=== PATIENT | male | born 1980 | race African-American/Black ===

== ENCOUNTER 2017-11-07 20:54 | Emergency (ER) | payer MEDICAID ==
[~2017-11-07 20:54] MED LIST: HYDR-3927 GT; LURA80TA PO; MIRT-91 PO
== END 2017-11-07 22:53 | disposition left against medical advice (07) ==
LOC: ER 22:35
DX: Z53.21 Procedure and treatment not carried out due to patient leaving prior to being seen by health care provider (principal)

== ENCOUNTER 2018-03-01 06:56 | Emergency (ER) | payer MEDICAID ==
[~2018-03-01] VITALS: Ht 182.9 cm; Wt 88.0 kg
[~2018-03-01 06:56] MED LIST changes: +ALPR2TAB2 PO; +MORP30TA54 PO; +QUET400T PO
[2018-03-01] MEDS ORDERED: IBUPROFEN 800MG TABLET PO ONE (09:15)
[2018-03-01] MEDS ORDERED: LORAZEPAM 1MG TABLET PO ONE (10:15)
[2018-03-01 11:14] LABS: CLARITY URINE CLEAR (CLEAR); COLOR URINE YELLOW (YELLOW); KETONES URINE TRACE (NEGATIVE); LEUKOCYTE ESTERASE URINE TRACE (NEGATIVE); NITRITE URINE NEGATIVE (NEGATIVE); OCCULT BLOOD URINE NEGATIVE (NEGATIVE); PROTEIN URINE TRACE (NEGATIVE); SPECIFIC GRAVITY URINE 1.011 (1.005-1.030); UROBILINOGEN URINE 0.2 E.U./dL (0.2-1.0)
[2018-03-01 11:28] LABS: BASOPHILS % 0.7 % (0.0-2.0); EOSINOPHILS % 0.1 % (0.0-5.0); HEMATOCRIT. 42.4 % (42.0-52.0); HEMOGLOBIN. 14.1 g/dL (14.0-18.0); MEAN CORPUSCULAR HEMOGLOBIN 28.9 pg (28.0-32.0); MEAN PLATELET VOLUME 7.1 fl (7.4-10.4); MONOCYTES % 7.3 % (2.0-8.0); NEUTROPHILS % 74.9 % (40.0-76.0); PLATELET 235 x1000/uL (130-400); RED BLOOD CELL COUNT 4.88 mill/uL (4.7-6.1)
[2018-03-01 11:36] LABS: CHLORIDE 102 mEq/L (98-107)
[2018-03-01 11:40] LABS: ETHANOL BLOOD < 10 mg/dL
[2018-03-01 11:47] LABS: *AMPHETAMINES SCREEN URINE NEGATIVE (NEGATIVE); *BARBITURATES SCREEN URINE NEGATIVE (NEGATIVE); *BENZODIAZEPINES SCREEN URINE NEGATIVE (NEGATIVE); *COCAINE SCREEN URINE PRESUMTIVE POSITIVE (NEGATIVE); METHADONE URINE SCREEN NEGATIVE (NEGATIVE); OPIATES URINE SCREEN NEGATIVE (NEGATIVE)
[2018-03-01 11:48] LABS: CANNABINOID URINE SCREEN PRESUMTIVE POSITIVE (NEGATIVE); PHENCYCLIDINE URINE SCREEN PRESUMTIVE POSITIVE (NEGATIVE)
[2018-03-01] MEDS ORDERED: TETANUS, DIPHTHERIA, PERTUSSIS VAC/PF 0.5ML (>7YR OLD) IM ONE (12:45)
[2018-03-01 13:50] VITALS: BP 136/95
== END 2018-03-01 13:55 | disposition home or self-care (01) ==
LOC: ER 06:56
DX: S02.40CA Maxillary fracture, right side, initial encounter for closed fracture (principal); S00.83XA Contusion of other part of head, initial encounter; M54.2 Cervicalgia; I10 Essential (primary) hypertension; Y09 Assault by unspecified means; Y93.89 Activity, other specified; Y92.89 Other specified places as the place of occurrence of the external cause; Y99.8 Other external cause status
CPT/HCPCS: 36415; 70450; 70486; 72125; 80053; 80305; 81003; 85025; 99285; G0482; Z7610; 90715

== ENCOUNTER 2018-03-13 16:03 | Emergency (ER) | payer MEDICAID ==
[~2018-03-13] VITALS: Ht 180.3 cm; Wt 81.0 kg
[2018-03-13 16:06] VITALS: BP 149/84
== END 2018-03-13 19:30 | disposition left against medical advice (07) ==
LOC: ER 16:12
DX: Z53.21 Procedure and treatment not carried out due to patient leaving prior to being seen by health care provider (principal)

== ENCOUNTER 2020-06-25 23:12 | Emergency (ER) | payer MEDICAID ==
[~2020-06-25] VITALS: Ht 188 cm; Wt 82.0 kg
[2020-06-25] MEDS ORDERED: HYDROCODONE/ACETAMINOPHEN 5/325MG TABLET PO ONE (23:45)
[2020-06-25 23:49] VITALS: BP 121/70
== END 2020-06-26 04:08 | disposition home or self-care (01) ==
LOC: ER 23:12
DX: M25.561 Pain in right knee (principal); I10 Essential (primary) hypertension; F20.9 Schizophrenia, unspecified; Z98.890 Other specified postprocedural states; Z79.899 Other long term (current) drug therapy; Z91.041 Radiographic dye allergy status
CPT/HCPCS: 73562; 99283; L1830

== ENCOUNTER 2020-07-04 01:12 | Emergency (ER) | payer MEDICAID ==
[~2020-07-04] VITALS: Ht 180.3 cm; Wt 131.0 kg
[2020-07-04 01:48] VITALS: BP 129/76
[2020-07-04] MEDS ORDERED: HYDROCODONE/ACETAMINOPHEN 5/325MG TABLET PO ONE (02:30)
== END 2020-07-04 02:43 | disposition home or self-care (01) ==
LOC: ER 02:34
DX: M25.561 Pain in right knee (principal); Z88.8 Allergy status to other drugs, medicaments and biological substances
CPT/HCPCS: 99283

== ENCOUNTER 2020-10-15 20:19 | Emergency (ER) | payer MEDICAID ==
[~2020-10-15] VITALS: Ht 188 cm; Wt 125.0 kg
[2020-10-15 22:10] LABS: BASOPHILS % 0.6 % (0.0-2.0); EOSINOPHILS % 0.5 % (0.0-5.0); HEMATOCRIT. 35.3 % (42.0-52.0); LYMPHOCYTES % 39.2 % (20.0-50.0); MEAN CORPUSCULAR HEMOGLOBIN 30.2 pg (28.0-32.0); MEAN CORPUSCULAR VOLUME 88.9 fL (80.0-94.0); MEAN PLATELET VOLUME 8.3 fl (7.4-10.4); NEUTROPHILS % 51.7 % (40.0-76.0); PLATELET 251 x1000/uL (130-400); RED BLOOD CELL COUNT 3.97 mill/uL (4.7-6.1); RED CELL DISTRIBUTION WIDTH 14.7 % (11.6-14.6)
[2020-10-15 22:14] LABS: CHLORIDE 110 mEq/L (98-107)
[2020-10-15 22:19] LABS: ETHANOL BLOOD < 10 mg/dL
[2020-10-15] MEDS ORDERED: ONDANSETRON HCL 4MG/2ML INJ IV STA ×2 (22:33)
[2020-10-15] MEDS ORDERED: MORPHINE SULFATE 4 MG/ML CPJ (NOT FOR IM USE) IV STA ×2 (22:33)
[2020-10-15] MEDS ORDERED: SODIUM CHLORIDE 0.9% 1,000 ML IV ONE ×2 (22:45)
[2020-10-15] MEDS ORDERED: AZITHROMYCIN 500 MG in DEXT 5% WATER 250 ML IV ONE (23:30)
[2020-10-15] MEDS ORDERED: CEFTRIAXONE 1 G PREMIX 50 ML IV ONE (23:30)
[2020-10-16] MEDS ORDERED: ASPIRIN 81MG TABLET PO ONE (00:15)
[2020-10-16 02:18] LABS: CLARITY URINE CLEAR (CLEAR); COLOR URINE YELLOW (YELLOW); KETONES URINE TRACE (NEGATIVE); LEUKOCYTE ESTERASE URINE NEGATIVE (NEGATIVE); NITRITE URINE NEGATIVE (NEGATIVE); OCCULT BLOOD URINE NEGATIVE (NEGATIVE); PROTEIN URINE NEGATIVE (NEGATIVE); SPECIFIC GRAVITY URINE 1.025 (1.005-1.030)
[2020-10-16 02:31] LABS: *AMPHETAMINES SCREEN URINE NEGATIVE (NEGATIVE); *BARBITURATES SCREEN URINE NEGATIVE (NEGATIVE); *BENZODIAZEPINES SCREEN URINE NEGATIVE (NEGATIVE); *COCAINE SCREEN URINE PRESUMTIVE POSITIVE (NEGATIVE); METHADONE URINE SCREEN NEGATIVE (NEGATIVE); OPIATES URINE SCREEN PRESUMTIVE POSITIVE (NEGATIVE); PHENCYCLIDINE URINE SCREEN PRESUMTIVE POSITIVE (NEGATIVE)
[2020-10-16 02:32] LABS: CANNABINOID URINE SCREEN PRESUMTIVE POSITIVE (NEGATIVE)
[2020-10-16 04:06] VITALS: BP 132/74
== END 2020-10-16 05:13 | disposition left against medical advice (07) ==
LOC: ER 20:19 → ENRESERV 10-16 02:52 → CANRESERV 10-16 02:52 → ER 10-16 05:13 → CANBEDREQ 10-17 09:47
DX: R10.9 Unspecified abdominal pain (principal); R07.9 Chest pain, unspecified; R05 Cough; M79.604 Pain in right leg; Z20.828 Contact with and (suspected) exposure to other viral communicable diseases; F32.9 Major depressive disorder, single episode, unspecified; I10 Essential (primary) hypertension; F20.9 Schizophrenia, unspecified; F43.10 Post-traumatic stress disorder, unspecified; Z91.041 Radiographic dye allergy status; Z98.890 Other specified postprocedural states
CPT/HCPCS: 36415; 71045; 73590; 74176; 80053; 80305; 80320; 81003; 83605; 83690; 83880; 84484; 85025; 87040; 87086; 87635; 93005; 93970; 96361; 96365; 96375; 99285; J0456; J0696; J2270; J2405; J7030; J7060; Z7610; G0480

== ENCOUNTER 2020-10-16 07:21 | Emergency (ER) | payer MEDICAID ==
[~2020-10-16] VITALS: Ht 188 cm; Wt 109.0 kg
[2020-10-16 07:28] VITALS: BP 188/96
== END 2020-10-16 07:59 | disposition home or self-care (01) ==
LOC: ER 07:21
DX: M25.551 Pain in right hip (principal); M79.604 Pain in right leg; I10 Essential (primary) hypertension; Z98.890 Other specified postprocedural states
CPT/HCPCS: 93005; 99283

== ENCOUNTER 2020-10-21 00:14 | Emergency (ER) | payer MEDICAID ==
[~2020-10-21] VITALS: Ht 188 cm; Wt 109.0 kg
[2020-10-21] MEDS: KETOROLAC 60MG/2ML VIAL IM NR ×2 (01:46→01:50)
[2020-10-21 01:54] VITALS: BP 157/85
== END 2020-10-21 01:58 | disposition home or self-care (01) ==
LOC: ER 00:22
DX: J06.9 Acute upper respiratory infection, unspecified (principal); M25.512 Pain in left shoulder; M79.661 Pain in right lower leg; I10 Essential (primary) hypertension; Z79.899 Other long term (current) drug therapy; Z98.890 Other specified postprocedural states
CPT/HCPCS: 96372; 99283; J1885